=== PATIENT | female | born 1990 | race Two or more races ===

== ENCOUNTER 2025-05-08 01:01 | Emergency (ER) | payer MEDICAID ==
[~2025-05-08] VITALS: Ht 162.6 cm; Wt 72.7 kg
[2025-05-08 01:03] VITALS: TEMP 98.1
[2025-05-08] MEDS: LIDOCAINE 1% 10 ML VIAL ID ONE (01:25)
[2025-05-08] MEDS: PERTUSS(ACELL),DIPH,TET/PF 0.5 ML SYRINGE [ADULT] IM. ONE (01:25)
[2025-05-08 03:00] VITALS: BP 125/74; PULSE 88; RESP 15; O2SAT 100
== END 2025-05-08 03:49 | disposition home or self-care (01) ==
LOC: EMS 01:01
DX: S01.112A Laceration without foreign body of left eyelid and periocular area, initial encounter (principal); W01.10XA Fall on same level from slipping, tripping and stumbling with subsequent striking against unspecified object, initial encounter; Y93.89 Activity, other specified; Y92.89 Other specified places as the place of occurrence of the external cause; Y99.8 Other external cause status
CPT/HCPCS: 99283; 90715; 90471; 12011; J3490